=== PATIENT | male | born 1990 | race Caucasian/White ===

== ENCOUNTER 2021-11-18 19:16 | Emergency (ER) | payer MEDICAID, SELFPAY ==
[2021-11-18 19:23] VITALS: BP 129/93; PULSE 124; RESP 16; TEMP 37.7; O2SAT 97; BMI 34.0
--- NOTE | 2021-11-18 19:47 | ED.GENADULT ---
HPI - General Adult General Date Seen: 11/18/21 Chief complaint: Unspecified Complaint, Adult Stated complaint: Chest Pain Fever Headache Time Seen by Provider: 11/18/21 19:36 Source: patient History of Present Illness HPI narrative: Patient is a 31-year-old male who presents for evaluation of fever, headache and sore throat. He says he became ill at about noon today with fever up to 102. He has had headache on the top of his head which is his primary complaint, and he also has a sore throat. He is managing secretions without difficulty. He tells me he has had a nondescript tonsillitis 5 times in the past year which has been treated with antibiotics each time and he says his throat has improved within 5-10 days each time. He had COVID previously, he tells me he had problems with tachycardia during COVID, with a max heart rate of 225. 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 He does not take anything at home for tachycardia. He says that his normal heart rate is between 80- 90 but when he gets sick it tends to run faster. He denies significant cough, he has not had shortness of breath or chest pain. He took a COVID test at home today around 4:00 p.m. and says that was negative. His daughter has been sick with cold symptoms as well, she has not been tested for COVID. He is not vaccinated for COVID as he says he has had allergies to multiple other vaccines and the COVID vaccine was not felt to be safe for him. He does not have any neck pain. No unusual rashes. No vomiting or diarrhea. No weakness, fainting or lightheadedness. He says he has been drinking water throughout the day. Related Data Allergies Allergy/AdvReac Type Severity Reaction Status Date / Time steriod eye drops AdvReac burned eyes Uncoded 11/18/21 19:27 Review of Systems Status of ROS: Reports: 10 or more systems reviewed and unremarkable except as noted in History and below [facility] Social History Smoking Status: Never smoker How often do you have a drink containing alcohol: monthly or less AUDIT-C Alcohol total score: 1 Non-prescribed substance use: denies use Exam Narrative: Exam Narrative: Vital signs as noted above. In general, an alert, well-appearing patient. Head: Normocephalic, atraumatic. Eyes: Pupils are equal reactive. Extraocular movements are full. Conjunctivae are normal. ENT: Mucous membranes are moist. Throat is normal. Tonsils are large at baseline but there is no edema, no exudate. Airway is patent. Neck: Supple without lymphadenopathy. No stridor. Heart: Mildly tachycardic, no murmur. Lungs: Clear bilaterally. No increased work of breathing, crackles or wheezes. Abdomen: Soft and nontender. No organomegaly. Extremities: Well perfused. No edema. No calf tenderness. Pulses intact. Neurologic: Patient is alert and oriented to person and place. Speech is fluent. Face is symmetric. Moves all extremities equally. Affect: Normal. Skin: Warm and dry. Well perfused. Const: Vital Signs, click to edit/add: Vital Signs - 24 hr 11/18/21 19:23 11/18/21 21:00 Temperature 99.8 F H Pulse Rate [Left P ulse Oximeter] 124 H 114 H Respiratory Rate 16 18 Blood Pressure [Ri ght Upper Arm] 129/93 H 127/85 Pulse Oximetry 97 100 Oxygen Delivery Me thod Room Air Room Air Documenting provider has reviewed patient's vital signs: yes Course Course Hospital Course: Given abrupt onset of fever, tachycardia, headache, I did recommend that we check a few basic labs. We will do a COVID and a strep swab. We will give some normal saline here and see if it has any effect on his heart rate although it sounds like some sinus tachycardia is not unusual for him when he is sick. Testing him this early it is possible that a COVID may be falsely negative. Clinically he is well-appearing, not at all toxic. His exam is reassuring. I do not find any focal findings suggestive of a bacterial source of infection. Plan will be to run in some fluids, if labs are reasonably normal, symptoms are likely viral, pending strep testing. Would recommend supportive care and recheck with primary care if not improving over the next few days. Vital Signs Vital signs: Initial Vital Signs Temperature 99.8 F H 11/18/21 19:23 Temperature Source Oral 11/18/21 19:23 Pulse Rate 124 H 11/18/21 19:23 Respiratory Rate 16 11/18/21 19:23 Blood Pressure 129/93 H 11/18/21 19:23 Blood Pressure Mean 105 11/18/21 19:23 Blood Pressure Position Supine 11/18/21 19:23 Pulse Oximetry 97 11/18/21 19:23 Oxygen Delivery Method 11/18/21 19:23 Vital Signs Temperature 99.8 F H 11/18/21 19:23 Pulse Rate 124 H 11/18/21 19:23 Respiratory Rate 16 11/18/21 19:23 Blood Pressure 129/93 H 11/18/21 19:23 Pulse Oximetry 97 11/18/21 19:23 Oxygen Delivery Method 11/18/21 19:23 Temperature 99.8 F H 11/18/21 19:23 Pulse Rate 114 H 11/18/21 21:00 Respiratory Rate 18 11/18/21 21:00 Blood Pressure 127/85 11/18/21 21:00 Pulse Oximetry 100 11/18/21 21:00 Oxygen Delivery Method 11/18/21 21:00 Medical Decision Making Lab Data Labs: Lab Results 11/18/21 11/18/21 11/18/21 Range/Units 20:25 20:25 20:25 WBC 9.18 (4.50-11.00) K/uL RBC 5.21 (4.30-5.90) m/uL Hgb 15.4 (13.5-17.5) gm/dL Hct 44.5 (37.0-53.0) % MCV 85 (80-100) fL MCH 30 (26-34) pg MCHC 35 (32-36) gm/dL RDW Coeff of Elisa 12.4 (11.5-15.5) % Plt Count 195 (140-440) K/uL Neut % (Auto) 78.9 H (42.0-72.0) % Lymph % (Auto) 10.8 L (20-44) % [place] % (Auto) 9.2 (0.0-11.0) % Eos % (Auto) 0.8 (0.0-7.0) % Baso % (Auto) 0.2 (0.0-3.0) % Neut # (Auto) 7.20 H (1.7-7.0) K/uL Lymph # (Auto) 1.00 (0.90-2.90) K/uL [place] # (Auto) 0.80 (0.00-0.90) K/UL Eos # (Auto) 0.07 (0.00-0.50) K/uL Baso # (Auto) 0.02 (0.00-0.30) K/uL Abs Immat Gran (auto) 0.01 (0.00-0.30) K/uL Sodium 137 (135-149) mmol/L Potassium 3.8 (3.6-5.1) mmol/L Chloride 104 (96-114) mmol/L Carbon Dioxide 22 (20-32) mmol/L BUN 15 (5-24) mg/dL Creatinine 1.1 (0.5-1.5) mg/dL Estimated Creat Clear 112.09 Estimated GFR 91 ml/min Glucose 99 (60-115) mg/dL Lactate (0.5-1.9) mmol/L Calcium 9.0 (8.4-10.6) mg/dL C-Reactive Protein 0.8 (0.5-1.0) mg/dL SARS-CoV-2 (PCR) Negative SARS-CoV-2 (Negative) Influenza Type A (PCR) Negative PCR FLU A (Negative) Influenza Type B (PCR) Negative PCR FLU B (Negative) RSV (PCR) Negative PCR RSV (Negative) Group A Strep DNA (No Detected) 11/18/21 11/18/21 Range/Units 20:25 20:25 WBC (4.50-11.00) K/uL RBC (4.30-5.90) m/uL Hgb (13.5-17.5) gm/dL Hct (37.0-53.0) % MCV (80-100) fL MCH (26-34) pg MCHC (32-36) gm/dL RDW Coeff of Elisa (11.5-15.5) % Plt Count (140-440) K/uL Neut % (Auto) (42.0-72.0) % Lymph % (Auto) (20-44) % [place] % (Auto) (0.0-11.0) % Eos % (Auto) (0.0-7.0) % Baso % (Auto) (0.0-3.0) % Neut # (Auto) (1.7-7.0) K/uL Lymph # (Auto) (0.90-2.90) K/uL [place] # (Auto) (0.00-0.90) K/UL Eos # (Auto) (0.00-0.50) K/uL Baso # (Auto) (0.00-0.30) K/uL Abs Immat Gran (auto) (0.00-0.30) K/uL Sodium (135-149) mmol/L Potassium (3.6-5.1) mmol/L Chloride (96-114) mmol/L Carbon Dioxide (20-32) mmol/L BUN (5-24) mg/dL Creatinine (0.5-1.5) mg/dL Estimated Creat Clear Estimated GFR ml/min Glucose (60-115) mg/dL Lactate 1.0 (0.5-1.9) mmol/L Calcium (8.4-10.6) mg/dL C-Reactive Protein (0.5-1.0) mg/dL SARS-CoV-2 (PCR) (Negative) Influenza Type A (PCR) (Negative) Influenza Type B (PCR) (Negative) RSV (PCR) (Negative) Group A Strep DNA NOT DETECTED (No Detected) Discharge Plan Discharge Clinical Impression: Acute viral syndrome Patient Disposition: Home, Self-Care Condition: Improved Instructions: Viral Syndrome (ED) Additional Instructions: Symptomatic care, ibuprofen or Tylenol for fever, headache, sore throat. Fluids. Rest. Return for acute worsening, shortness of breath, or other significant symptoms. See your primary doctor for symptoms that persist beyond 7-10 days. Follow Up/Referrals: Johnnie Alvarado MD [Primary Care Provider] - Stand Alone Forms: [employer] Info Instructions
[2021-11-18 20:30] LABS: Basophils Absolute Auto 0.02 K/uL (0.00-0.30); Basophils Percent Auto 0.2 % (0.0-3.0); Eosinophils Absolute Auto 0.07 K/uL (0.00-0.50); Eosinophils Percent Auto 0.8 % (0.0-7.0); Hematocrit 44.5 % (37.0-53.0); Hemoglobin* 15.4 gm/dL (13.5-17.5); Immature Granulocytes Abs Auto 0.01 K/uL (0.00-0.30); Lymphocytes Percent Auto 10.8 % (20-44); Mean Corpuscular HGB Conc 35 gm/dL (32-36); Mean Corpuscular Hemoglobin 30 pg (26-34); Mean Corpuscular Volume 85 fL (80-100); Monocytes Percent Auto 9.2 % (0.0-11.0); Neutrophils Percent Auto 78.9 % (42.0-72.0); Platelet Count* 195 K/uL (140-440); RDW Coefficient of Variation % 12.4 % (11.5-15.5); Red Blood Count 5.21 m/uL (4.30-5.90); White Blood Count* 9.18 K/uL (4.50-11.00)
[2021-11-18] MEDS: 0.9 % SODIUM CHLORIDE 1000 ml 1,000 ML IV (20:36)
[2021-11-18 20:42] LABS: Slide Review Reflex No
[2021-11-18 20:46] LABS: Chloride* 104 mmol/L (96-114); Potassium* 3.8 mmol/L (3.6-5.1); Sodium* 137 mmol/L (135-149)
[2021-11-18 20:48] LABS: Creatinine* 1.1 mg/dL (0.5-1.5); Est. Creatinine Clearance* 112.09; Estimated Glomerular Filt Rate 91 ml/min
[2021-11-18 20:49] LABS: Blood Urea Nitrogen* 15 mg/dL (5-24); Carbon Dioxide* 22 mmol/L (20-32); Glucose* 99 mg/dL (60-115)
[2021-11-18 20:52] LABS: C Reactive Protein* 0.8 mg/dL (0.5-1.0)
[2021-11-18 20:56] LABS: Strep A DNA Probe* NOT DETECTED (No Detected)
[2021-11-18 21:00] VITALS: BP 127/85; PULSE 114; RESP 18; O2SAT 100
[2021-11-18 21:08] LABS: PCR FLU A Negative PCR FLU A (Negative); PCR FLU B Negative PCR FLU B (Negative); PCR RSV Negative PCR RSV (Negative)
[2021-11-18 21:10] LABS: SARS PCR* Negative SARS-CoV-2 (Negative)
[2021-11-18] MEDS: KETOROLAC 15 MG/ML inj IVP (21:23)
== END 2021-11-18 21:39 | disposition home or self-care (01) ==
PROVIDERS: Emergency Provider Emergency Medicine; PCP Family Medicine
DX: B34.9 Viral infection, unspecified (principal)
CPT/HCPCS: 36415; 80048; 83605; 85025; 86140; 87502; 87634; 87635; 87651; 96374; 99283; 99284; J1885; J7030